=== PATIENT | female | born 1975 | race Two or more races ===

== ENCOUNTER 2025-07-05 02:17 | Emergency (ER) | payer BC, OTHER ==
[~2025-07-05] VITALS: Ht 157.5 cm; Wt 100.9 kg
[2025-07-05] MEDS: KETOROLAC TROMETH 30 MG/ML 1ML VIAL IM ONE (03:03)
[2025-07-05] MEDS: ACETAMINOPHEN 325 MG TAB PO ONE (03:04)
[2025-07-05 03:25] LABS: Hemoglobin 12.8 g/dL (12.2-16.2)
[2025-07-05 03:29] LABS: Hematocrit 38.3 % (36.0-46.0); Mean Corpuscular Hemoglobin 26.5 pg (28.0-32.0); Mean Corpuscular Volume 79.2 fL (80.0-100.0); Nucleated Red Blood Cells % 0.0 %
[2025-07-05 03:33] LABS: Potassium 4.3 mmol/L (3.5-5.1); Sodium 145 mmol/L (136-145)
[2025-07-05 03:34] LABS: Anion Gap 8 (5-15); Carbon Dioxide 29 mmol/L (20-31)
[2025-07-05 03:40] LABS: BUN/Creatinine Ratio 15.5 (10.0-20.0); Blood Urea Nitrogen 13 mg/dL (9-23)
[2025-07-05 03:43] LABS: Urine Protein, UAD TRACE (Negative)
[2025-07-05 04:06] LABS: Calcium 11.5 mg/dL (8.7-10.4); Chloride 108 mmol/L (98-107); Glucose 108 mg/dL (74-106)
--- NOTE | 2025-07-05 04:27 | DVH ---
Exam: CT CT AB PEL WO CON-NO ORAL OR IV History: Flank Pain Comparison Study: None Technique: CT acquisition of the abdomen and pelvis without contrast. Axial, coronal and sagittal multiplanar reformats were obtained from the axial data set by the technologist. Radiation Dose : 1. Abdomen/Pelvis: CTDIvol 25.95 mGy, DLP 1362.31 mGy*cm. Findings: Evaluation of solid organs is limited due to lack of intravenous contrast use. Lower Chest: No acute findings. Liver: Unremarkable. Gallbladder and Biliary Tree: Cholecystectomy change. Pancreas: Unremarkable. Spleen: Unremarkable. Adrenal Glands: Unremarkable. Kidneys/Ureters: 5 mm stone at the left ureteropelvic junction with minimal hydronephrosis. Additional punctate nonobstructing stone in each collecting system. Unremarkable right ureter. Bladder: Grossly unremarkable for degree of distention. Pelvic Organs: IUD appears in low position, arms of proximally 4 cm from the fundal serosa and base in the lower uterine segment. Bowel: Normal caliber without wall thickening. Normal appendix. Vasculature: Unremarkable. Lymphadenopathy: No obvious adenopathy. Peritoneum: No ascites, free air, or fluid collection. Abdominal Wall: No significant hernia. Musculoskeletal: No acute findings. Degenerative change of the spine and pelvis. IMPRESSION: 1. A 5 mm stone at the left UPJ is associated with mild obstructive uropathy. 2. Additional nonobstructing punctate stones in each collecting system. 3. IUD appears in low position, alternative contraception and outpatient follow- up recommended. Radiation optimization: All CT scans at this facility use at least one of these dose optimization techniques: automated exposure control mA and/or kV adjustment per patient size (includes targeted exams where dose is matched to clinical indication) or iterative reconstruction.
[2025-07-05 04:28] VITALS: BP 124/78; PULSE 76; RESP 18; TEMP 98.1; O2SAT 98
[2025-07-05] MEDS ORDERED: KETO10TA PO (04:43)
[2025-07-05] MEDS ORDERED: ACET500T58 PO (04:43)
--- NOTE | 2025-07-05 04:47 | ED.PDOC ---
History of Present Illness HPI Comments 50-year-old female who presents to the emergency department with left lower quadrant pain radiating to the left back which started on . Pain improved and now has returned, woke her from her sleep at 1:00 a.m. this morning. Patient states pain was somewhat improved with ibuprofen. No aggravating factors. Pain is sharp, 8 to 9/10 in severity. No similar symptoms in the past. Patient has a past medical history of hypertension, cholecystectomy, IUD in place. She denies any UTI symptoms, vaginal symptoms. REVIEW OF SYSTEMS: General: No fever, no chills, or fatigue HEENT: No sore throat, no earache, no congestion, no neck pain. Cardiac: No chest pain. No palpitations. Lungs: No shortness of breath, no cough. GI: No nausea, no vomiting, + diarrhea, no constipation, + abdominal pain : No dysuria, frequency, or urgency. No hematuria. No vaginal discharge, irritation or odor. Musculoskeletal: No joint pain , no joint swelling, no extremity edema. + back pain Skin: No rash, no itching. Neuro: No headache, no dizziness, no weakness (And as sated in HPI) PHYSICAL EXAM: General: Awake, alert and oriented. No acute distress. Skin: Skin in warm, dry and intact. Appropriate color for ethnicity. HEENT: The head is normocephalic and atraumatic. Conjunctivae are clear without exudates or hemorrhage. Sclera is non-icteric. Eyelids are normal in appearance without swelling or lesions. Oral mucosa is pink and moist Neck: The neck is supple with normal range of motion. No JVD. Cardiac: Heart rate and rhythm are normal. No murmurs, gallops, or rubs are auscultated. Respiratory: No signs of respiratory distress. Lung sounds are clear in all lobes bilaterally without rales, rhonchi, or wheezes. Abdominal: Abdomen is soft, n+ left flank tenderness. No guarding or rigidity. Bowel sounds are present and normoactive in all four quadrants. Extremities: Lower extremities without edema. Neurological: The patient is awake, alert and oriented to person, place, and time with normal speech. Speech is clear. There is no facial asymmetry. Normal gait Psychiatric: Appropriate mood and affect. Good judgement and insight. Chief Complaint: Abdominal Pain Time Seen by MD: 02:23 Allergies: Coded Allergies: NO KNOWN ALLERGIES (Unverified , 07/05/25) Mode of Arrival: Ambulatory Was a procedure done? Was a procedure done?: No Differential Dx Considerations may include: Differential diagnoses considered include but are not limited to pyelonephritis, UTI, nephrolithiasis, PUD, musculoskeletal pain, AAA, other X-Ray, Labs, Meds, VS Vital Signs Date Time Temp Pulse Resp B/P (MAP) Pulse Ox O2 Delivery O2 Flow Rate FiO2 07/05/25 04:28 98.1 76 18 124/78 (93) 98 98.1 07/05/25 04:28 98 Room Air* 0 21 07/05/25 02:19 98.3 79 18 187/95 96 98.3 Lab Test 07/05/25 03:25 07/05/25 02:51 Range/Units Urine Color Light-yellow Yellow Urine Clarity Clear Clear Urine pH 6.0 5.0-9.0 Urine Specific [place] 1.024 1.001-1.035 Urine Protein Trace H Negative Urine Ketones Negative Negative Urine Blood 2+ H Negative /uL Urine Nitrite Negative Negative Urine Bilirubin Negative Negative Urine Urobilinogen Normal Negative mg/dL Urine Leukocyte Esterase Trace Negative /uL Urine RBC 57 0 - 4 /hpf Urine Microscopic WBC 10 H 0-5 /HPF Urine Squamous Epithelial Cells Few <5 /hpf Urine Bacteria None seen None Seen /hpf Urine Mucus Few None Seen Urine Glucose Normal Normal mg/dL White Blood Count 8.9 4.4-10.8 10^3/uL Red Blood Count 4.83 4.0-5.20 10^6/uL Hemoglobin 12.8 12.2-16.2 g/dL Hematocrit 38.3 36.0-46.0 % Mean Corpuscular Volume 79.2 L 80.0-100.0 fL Mean Corpuscular Hemoglobin 26.5 L 28.0-32.0 pg Mean Corpuscular Hemoglobin Concent 33.5 32.0-36.0 g/dL Red Cell Distribution Width 15.8 H 11.8-14.3 % Platelet Count 304 140-450 10^3/uL Mean Platelet Volume 7.5 6.9-10.8 fL Neutrophils (%) (Auto) 64.2 37.0-80.0 % Lymphocytes (%) (Auto) 25.9 10.0-50.0 % Monocytes (%) (Auto) 7.1 0.0-12.0 % Eosinophils (%) (Auto) 2.3 0.0-7.0 % Basophils (%) (Auto) 0.5 0.0-2.0 % Neutrophils # (Auto) 5.7 1.6-8.6 10 ^3/uL Lymphocytes # (Auto) 2.3 0.4-5.4 10 ^3/uL Monocytes # (Auto) 0.6 0-1.3 10 ^3/uL Eosinophils # (Auto) 0.2 0-0.8 10 ^3/uL Basophils # (Auto) 0 0-0.2 10 ^3/uL Nucleated Red Blood Cells 0.0 % Sodium Level 145 136-145 mmol/L Potassium Level 4.3 3.5-5.1 mmol/L Chloride Level 108 H 98-107 mmol/L Carbon Dioxide Level 29 20-31 mmol/L Anion Gap 8 5-15 Blood Urea Nitrogen 13 9-23 mg/dL Creatinine 0.84 0.550-1.02 mg/dL Glomerular Filtration Rate Calc 84 >90 mL/min BUN/Creatinine Ratio 15.5 10.0-20.0 Serum Glucose 108 H 74-106 mg/dL Calcium Level 11.5 H 8.7-10.4 mg/dL Current Medications Medications (Trade) Dose Ordered Sig/Emily Route Start Time Stop Time Status Last Admin Ketorolac Tromethamine (Toradol Injection) 30 mg ONCE ONCE IM 07/05/25 02:45 07/05/25 02:46 DC 07/05/25 03:03 Tramadol HCl (Ultram) 50 mg ONCE ONCE PO 07/05/25 02:45 07/05/25 02:46 DC 07/05/25 03:04 Acetaminophen (Tylenol Tablet) 650 mg ONCE ONCE PO 07/05/25 02:45 07/05/25 02:46 DC 07/05/25 03:04 PATIENT: IZABEL EVANS ACCT: [id number] UNIT: [id number] : 1975 LOC: ER ROOM / BED: / AGE / SEX: 50 / F ADM STATUS: REG ER SERVICE [id number] ORDERING PHYSICIAN: KINGSTON WATSON MD PROCEDURE(s): ABPL - CT AB PEL WO CON-NO ORAL OR IV REASON: Flank Pain ORDER NUMBER(s): [id number], ACCESSION NUMBER(s): [id number] Exam: CT CT AB PEL WO CON-NO ORAL OR IV History: Flank Pain Comparison Study: None Technique: CT acquisition of the abdomen and pelvis without contrast. Axial, coronal and sagittal multiplanar reformats were obtained from the axial data set by the technologist. Radiation Dose : 1. Abdomen/Pelvis: CTDIvol 25.95 mGy, DLP 1362.31 mGy*cm. Findings: Evaluation of solid organs is limited due to lack of intravenous contrast use. Lower Chest: No acute findings. Liver: Unremarkable. Gallbladder and Biliary Tree: Cholecystectomy change. Pancreas: Unremarkable. Spleen: Unremarkable. Adrenal Glands: Unremarkable. Kidneys/Ureters: 5 mm stone at the left ureteropelvic junction with minimal hydr onephrosis. Additional punctate nonobstructing stone in each collecting system. Unremarkable right ureter. Bladder: Grossly unremarkable for degree of distention. Pelvic Organs: IUD appears in low position, arms of proximally 4 cm from the fundal serosa and base in the lower uterine segment. Bowel: Normal caliber without wall thickening. Normal appendix. Vasculature: Unremarkable. Lymphadenopathy: No obvious adenopathy. Peritoneum: No ascites, free air, or fluid collection. Abdominal Wall: No significant hernia. Musculoskeletal: No acute findings. Degenerative change of the spine and pelvis. IMPRESSION: 1. A 5 mm stone at the left UPJ is associated with mild obstructive uropathy. 2. Additional nonobstructing punctate stones in each collecting system. 3. IUD appears in low position, alternative contraception and outpatient follow- up recommended. Radiation optimization: All CT scans at this facility use at least one of these dose optimization techniques: automated exposure control mA and/or kV adjustment per patient size (includes targeted exams where dose is matched to clinical indication) or iterative reconstruction. ATED BY: STEVEN SEGURA MD DICTATED DATE/TIME: 07/05/25424 SIGNED BY: STEVEN SEGURA MD SIGNED DATE/TIME: 07/05/25424 Time of 1ST Reevaluation: 04:40 Reevaluation 1ST: Unchanged Patient Education/Counseling: Need For Follow Up Family Education/Counseling: No Family Present SEPSIS Sepsis Screen Date sepsis recognized/suspect: Jul 05, 2025 Time Sepsis recognized/suspect: 218 Recent Procedure: No On Antibiotic Therapy: No Respiratory Rate >20: No Heart Rate >90: No Temp<36 C (96.8 F) or >38.3 C: No SBP <90 or MAP <65 mmHG: No New Acute Mental Status Change: No Is the patient on CPAP, BIPAP,: No Physician Orders Ct Ab Pel Wo Con-No Oral Or Iv (07/05/25 02:41) Vital Signs Date Time Temp Pulse Resp B/P (MAP) Pulse Ox O2 Delivery O2 Flow Rate FiO2 07/05/25 04:28 98.1 76 18 124/78 (93) 98 98.1 07/05/25 04:28 98 Room Air* 0 21 07/05/25 02:19 98.3 79 18 187/95 96 98.3 Laboratory Tests Test 07/05/25 02:51 White Blood Count 8.9 10^3/uL (4.4-10.8) Medications Medications Dose Ordered Sig/Emily Route Start Time Stop Time Status Last Admin Dose Admin Acetaminophen 650 mg ONCE ONCE PO 07/05/25 02:45 07/05/25 02:46 DC 07/05/25 03:04 Ketorolac Tromethamine 30 mg ONCE ONCE IM 07/05/25 02:45 07/05/25 02:46 DC 07/05/25 03:03 Tramadol HCl 50 mg ONCE ONCE PO 07/05/25 02:45 07/05/25 02:46 DC 07/05/25 03:04 Departure 1 Departure Time of Disposition: 04:41 Impression: Primary Impression: Kidney stone Disposition: 01 HOME / SELF CARE / HOMELESS Condition: Stable Additional Instructions: ED DISCHARGE INSTRUCTIONS Instructions: Please read all instructions provided in this packet carefully. A copy of your CAT scan is included in this packet. Please see if this packet and take it to your next follow up visit. Your IUD may be out of place, please follow up with the primary care provider. Although you have been discharged from the Emergency Department, this does not mean that you have a "clean bill of health". No definitive diagnosis for your symptoms has been made today. It is possible that you are in the process of developing a serious illness. This is why you must return to the ED without fail if any new or worsening symptoms (especially if your symptoms include chest ruslan n, trouble breathing, abdominal pain, fever, headache, confusion, trouble seeing, or trouble walking) It is also very important that you see a primary care provider (PCP) within the next 3-5 days to follow up. You may need a referral to see a urologist. If you are unable to get an appointment, return to the ED for re-evaluation. Kidney Stone: Care Instructions Kidney stones are formed when salts, minerals, and other substances normally found in the urine clump together. They can be as small as grains of sand or, rarely, as large as golf balls. While the stone is traveling through the ureter, which is the tube that carries urine from the kidney to the bladder, you will probably feel pain. The pain may be mild or very severe. You may also have some blood in your urine. As soon as the stone reaches the bladder, any intense pain should go away. If a stone is too large to pass on its own, you may need a medical procedure to help you pass the stone. The doctor has checked you carefully, but problems can develop later. If you notice any problems or new symptoms, get medical treatment right away . Follow-up care is a thurman part of your treatment and safety. Be sure to make and go to all appointments, and call your doctor if you are having problems. It's al so a good idea to know your test results and keep a list of the medicines you take. How can you care for yourself at home? Drink plenty of fluids. If you have kidney, heart, or liver disease and have to limit fluids, talk with your doctor before you increase the amount of fluids you drink. Be safe with medicines. Read and follow all instructions on the label. If you are not taking a prescription pain medicine, ask your doctor if you can take an [id number] medicine. Nonsteroidal anti-inflammatory drugs (NSAIDs), such as ibuprofen (Advil, Motrin), may help with the pain. If the doctor gave you a prescription medicine for pain, take it as prescribed. Store your prescription pain medicines where no one else can get to them. When you are done using them, dispose of them quickly and safely. Your local pharmacy or hospital may have a drop-off site. Your doctor may ask you to strain your urine so that you can collect your kidney stone when it passes. You can use a kitchen strainer or a tea strainer to catch the stone. Store it in a plastic bag until you see your doctor again. Preventing future kidney stones Some changes in your diet may help prevent kidney stones. Depending on the cause of your stones, your doctor may recommend that you: Drink plenty of fluids. If you have kidney, heart, or liver disease and have to limit fluids, talk with your doctor before you increase the amount of fluids you drink. Try to drink mostly water. Limit grapefruit juice and sugar-sweetened beverages like soda. Do not take more than the recommended daily dose of vitamins C and D. Avoid antacids such as Maalox, Mylanta, or Tums. Limit the amount of salt (sodium) in your diet. Eat a variety of healthy foods. Include plenty of fruits and vegetables. You may need to limit animal protein for certain types of kidney stones. If you're worried about getting enough protein, try replacing animal protein sources with plant-based sources like dried peas and lentils. Limit foods that are high in a substance called oxalate, which can cause kidney stones. These foods include dark green vegetables, rhubarb, chocolate, wheat bran, nuts, cranberries, and beans. When should you call for help? Contact your doctor now or seek immediate medical care if: You cannot keep down fluids. Your pain gets worse. You have a fever or chills. You have new or worse pain in your back just below your rib cage (the flank area). You have new or more blood in your urine. You have new or worse pain or burning when you urinate. You have new or worse trouble urinating. Watch closely for changes in your health, and be sure to contact your doctor if: You do not get better as expected. Credits for Kidney Stone: Care Instructions Current as of: November 23, 2024 Author: [employer] Staff Clinical Review Board All [employer] education is reviewed by a team that includes physicians, nurses, advanced practitioners, registered dieticians, and other healthcare professionals. PROCEDURE(s): ABPL - CT AB PEL WO CON-NO ORAL OR IV REASON: Flank Pain ORDER NUMBER(s): [id number], ACCESSION NUMBER(s): [id number] Exam: CT CT AB PEL WO CON-NO ORAL OR IV History: Flank Pain Comparison Study: None Technique: CT acquisition of the abdomen and pelvis without contrast. Axial, coronal and sagittal multiplanar reformats were obtained from the axial data set by the technologist. Radiation Dose : 1. Abdomen/Pelvis: CTDIvol 25.95 mGy, DLP 1362.31 mGy*cm. Findings: Evaluation of solid organs is limited due to lack of intravenous contrast use. Lower Chest: No acute findings. Liver: Unremarkable. Gallbladder and Biliary Tree: Cholecystectomy change. Pancreas: Unremarkable. Spleen: Unremarkable. Adrenal Glands: Unremarkable. Kidneys/Ureters: 5 mm stone at the left ureteropelvic junction with minimal hydronephrosis. Additional punctate nonobstructing stone in each collecting system. Unremarkable right ureter. Bladder: Grossly unremarkable for degree of distention. Pelvic Organs: IUD appears in low position, arms of proximally 4 cm from the fundal serosa and base in the lower uterine segment. Bowel: Normal caliber without wall thickening. Normal appendix. Vasculature: Unremarkable. Lymphadenopathy: No obvious adenopathy. Peritoneum: No ascites, free air, or fluid collection. Abdominal Wall: No significant hernia. Musculoskeletal: No acute findings. Degenerative change of the spine and pelvis. IMPRESSION: 1. A 5 mm stone at the left UPJ is associated with mild obstructive uropathy. 2. Additional nonobstructing punctate stones in each collecting system. 3. IUD appears in low position, alternative contraception and outpatient follow- up recommended. Radiation optimization: All CT scans at this facility use at least one of these dose optimization techniques: automated exposure control mA and/or kV adjustmen t per patient size (includes targeted exams where dose is matched to clinical indication) or iterative reconstruction. ATED BY: STEVEN SEGURA MD DICTATED DATE/TIME: 07/05/25424 SIGNED BY: STEVEN SEGURA MD SIGNED DATE/TIME: 07/05/25424 e-Prescriptions Ketorolac Tromethamine (Ketorolac Tromethamine) 10 Mg Tab 1 TAB PO TID, #15 TAB Prov: KINGSTON WATSON MD 07/05/25 Acetaminophen (Acetaminophen) 500 Mg Tab 500 MG PO Q6HPRN PRN for 5 Days, #20 TAB Prov: KINGSTON WATSON MD 07/05/25 Comments 50-year-old female with 5 mm left UVJ stone. No sign of urinary tract infection. Patient is afebrile. Patient well-appearing, nontoxic. Advised prompt follow-up with PCP, return to the ED with any new, worsening or concerning symptoms. Critical Care Note Critical Care Time?: No Stability Stability form required: No Heart Score Heart Score: Heart Score Response (Comments) Value History N/A 0 EKG N/A 0 Age N/A 0 Risk Factors N/A 0 Troponin N/A 0 Total 0 KINGSTON WATSON MD Jul 05, 2025 04:47
== END 2025-07-05 04:55 | disposition home or self-care (01) ==
LOC: ER 02:17
DX: N20.0 Calculus of kidney (principal); I10 Essential (primary) hypertension
CPT/HCPCS: 36415; 74176; 80048; 81001; 85025; 96372; 99285; J1885